=== PATIENT | female | born 1980 | race Two or more races ===

== ENCOUNTER 2023-08-19 20:28 | Inpatient (IN) | payer OTHER, MEDICAID, SELFPAY ==
[2023-08-19 20:29] VITALS: BP 162/91; PULSE 112; RESP 18; TEMP 36.6; O2SAT 99; BMI 24.5
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
[2023-08-19] MEDS: 0.9% Normal Saline (1000mL) 1,000 ML 999 ML IV (21:12)
[2023-08-19 21:25] LABS: Absolute Lymphocyte Count 3.73 X10^3/uL (0.83-4.51); Absolute Neutrophil Count 7.5 X10^3/uL (2.0-7.7); Basophil# 0.09 X10^3/uL; Basophil% 0.7 % (0-1); Eosinophil# 0.34 X10^3/uL; Eosinophils% 2.7 % (0-5); Hematocrit 44.1 % (37-47); Hemoglobin 14.6 g/dL (12.0-15.0); Lymphocyte # 3.73 X10^3/ul (0.83-4.51); Lymphocyte % 30.2 % (19-41); Mean Corp Hgb Conc 33.1 g/dL (32-36); Mean Corpuscular Hgb 31.9 pg (27.0-32.0); Mean Corpuscular Volume 96.3 fL (81-99); Mean Platelet Vol. 9.3 fl (6.2-12.0); Monocyte# 0.61 X10^3/uL; Monocyte% 4.9 % (0-10); NRBC Flagged by Analyzer 0 % (0-5); Neutrophil # 7.54 X10^3/uL (2.7-7.7); Platelet Count 310 K/mm3 (150-450); RBC Distribution Width CV 12.9 % (11.6-14.6); RBC Distribution Width SD 45.3 fl (35.1-43.9); Red Blood Count 4.58 M/mm3 (4.2-5.4); White Blood Count 12.4 K/mm3 (4.4-11.0)
[2023-08-19 21:33] LABS: International Normalized Ratio 0.9; Prothrombin Time (Protime)PT. 12.2 SECONDS (11.7-14.9)
[2023-08-19 21:38] LABS: Alcohol, Blood (Medical)-Serum < 3.0 mg/dL
[2023-08-19 21:43] LABS: ALB/GLOB Ratio 1.1 RATIO (0.9-2.4); AST(SGOT) 12 U/L (15-37); Alanine Aminotransfer ALT/SGPT 15 U/L (13-56); Albumin, Serum 3.6 g/dL (3.2-5.0); Alkaline Phosphatase 72 U/L (45-117); Anion Gap 5 (5-15); BUN 20 mg/dL (7-18); BUN/Creat Ratio 21.6 RATIO (10-20); Calcium,Total 9.2 mg/dL (8.5-10.1); Chloride 108 mmol/L (98-107); Creatinine, Serum 0.93 mg/dL (0.55-1.02); EST Glomerular Filtration Rate 70 mL/min (>60); Est Glom Filt Rate - Afr Amer 85 mL/min (>60); Estimated Creatinine Clearance 80.67 ml/min; Globulin 3.3 g/dL (2.2-4.2); Glucose 79 mg/dL (74-106); Potassium 3.8 mmol/L (3.5-5.1); Protein, Total 6.9 g/dL (6.4-8.2); Sodium Level 140 mmol/L (136-145)
[2023-08-19 22:06] LABS: Amphetamine Urine VISTA NEGATIVE (<1000 ng/mL); Barbiturate Urine VISTA NEGATIVE (< 200 ng/mL); Benzodiazepine Urine VISTA NEGATIVE (< 200 ng/mL); Cocaine Urine VISTA POSITIVE (< 300 ng/mL); Ecstacy Urine VISTA NEGATIVE (< 500 ng/mL); Methadone Urine VISTA NEGATIVE (< 300 ng/mL); PCP Urine VISTA NEGATIVE (< 25 ng/mL); THC Urine VISTA POSITIVE (< 50 ng/mL); Vista UDS pH Range 6
[2023-08-19 22:41] VITALS: BP 105/64; PULSE 91; RESP 16; O2SAT 99
[2023-08-19 22:57] VITALS: BP 105/64; PULSE 87; RESP 16; O2SAT 99
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
[2023-08-19 23:39] VITALS: BMI 25.4
[2023-08-20 00:05] VITALS: BP 107/74; PULSE 84; RESP 16; TEMP 36.6; O2SAT 95
[2023-08-20] MEDS: Phenobarbital 32.4 MG Tablet 64.8 MG PO ×7 (00:06→23:37)
[2023-08-20] MEDS: 0.9% Saline Lock 10 ML Syringe IV ×2 (00:11→09:22)
[2023-08-20] MEDS: 0.9% Normal Saline (1000mL) 1,000 ML 125 ML IV ×2 (00:11→06:47)
[2023-08-20 03:10] VITALS: BP 110/67; PULSE 73; RESP 16; TEMP 36.6; O2SAT 97
[2023-08-20 07:56] LABS: Absolute Lymphocyte Count 2.88 X10^3/uL (0.83-4.51); Absolute Neutrophil Count 6.2 X10^3/uL (2.0-7.7); Basophil# 0.07 X10^3/uL; Basophil% 0.7 % (0-1); Eosinophil# 0.39 X10^3/uL; Eosinophils% 3.8 % (0-5); Hematocrit 41.2 % (37-47); Hemoglobin 13.6 g/dL (12.0-15.0); Lymphocyte # 2.88 X10^3/ul (0.83-4.51); Lymphocyte % 28.3 % (19-41); Mean Corpuscular Hgb 32.4 pg (27.0-32.0); Mean Corpuscular Volume 98.1 fL (81-99); Mean Platelet Vol. 9.5 fl (6.2-12.0); Monocyte# 0.56 X10^3/uL; Monocyte% 5.5 % (0-10); NRBC Flagged by Analyzer 0 % (0-5); Neutrophil # 6.19 X10^3/uL (2.7-7.7); Platelet Count 262 K/mm3 (150-450); RBC Distribution Width SD 46.4 fl (35.1-43.9); White Blood Count 10.2 K/mm3 (4.4-11.0)
[2023-08-20 08:56] LABS: AST(SGOT) 8 U/L (15-37); Alanine Aminotransfer ALT/SGPT 13 U/L (13-56); Albumin, Serum 2.7 g/dL (3.2-5.0); Alkaline Phosphatase 57 U/L (45-117); Anion Gap 6 (5-15); BUN 19 mg/dL (7-18); BUN/Creat Ratio 25.3 RATIO (10-20); Calcium,Total 7.7 mg/dL (8.5-10.1); Chloride 114 mmol/L (98-107); Creatinine, Serum 0.75 mg/dL (0.55-1.02); EST Glomerular Filtration Rate 89 mL/min (>60); Est Glom Filt Rate - Afr Amer 108 mL/min (>60); Estimated Creatinine Clearance 96.56 ml/min; Globulin 2.7 g/dL (2.2-4.2); Glucose 138 mg/dL (74-106); Potassium 3.6 mmol/L (3.5-5.1); Protein, Total 5.4 g/dL (6.4-8.2); Sodium Level 142 mmol/L (136-145); Thyroid Stim Hormone (TSH) 1.97 uIU/mL (0.358-3.74)
[2023-08-20 09:16] VITALS: BP 108/66; PULSE 79; RESP 18; TEMP 36.8; O2SAT 95
[2023-08-20] MEDS: hydrOXYzine PAM 25 MG Capsule 50 MG PO (09:21)
[2023-08-20] MEDS: Gabapentin 300 MG Capsule PO (09:22)
[2023-08-20 11:51] VITALS: BP 128/72; PULSE 80
--- NOTE | 2023-08-20 14:09 | PN.HOSP_ITS ---
Reason for Visit Reason for Visit: Diagnoses Alcohol dependence, uncomplicated (08/19/23) Cocaine abuse, uncomplicated (08/19/23) Subjective Subjective Feeling tired today, had no other acute complaints at time of exam Objective Data Objective Data Vital Signs: Vital Signs Temp Pulse Resp BP Pulse Ox O2 Del Method 98.2 F 80 18 128/72 H 95 Room Air 08/20/23 09:16 08/20/23 11:51 08/20/23 09:16 08/20/23 11:51 08/20/23 09:16 08/20/23 09:16 Oxygen Delivery Method Room Air Weight: 75.9 kg Body Mass Index (BMI) 25.4 Intake & Output: Intake and Output for Last 24 Hours 08/18/23 08/19/23 08/20/23 23:59 23:59 23:59 Intake Total 1000 / 1000 1175 / 1175 Balance 1000 / 1000 1175 / 1175 Lab / Micro Data 08/20/23 07:30 08/20/23 07:30 Labs: Laboratory Results - last 24 hr 08/19/23 21:10: WBC 12.4 H, RBC 4.58, Hgb 14.6, Hct 44.1, MCV 96.3, MCH 31.9, MCHC 33.1, RDW Std Deviation 45.3 H, RDW Coeff of [place] 12.9, Plt Count 310, MPV 9.3, Immature Gran % (Auto) 0.500, Neut % (Auto) 61.0, Lymph % (Auto) 30.2, [place] % (Auto) 4.9, Eos % (Auto) 2.7, Baso % (Auto) 0.7, Absolute Neuts (auto) 7.5, Absolute Lymphs (auto) 3.73, Nucleated RBC % 0, PT 12.2, INR 0.9, Sodium 140, Potassium 3.8, Chloride 108 H, Carbon Dioxide 27.0, Anion Gap 5, BUN 20 H, Creatinine 0.93, Estim Creat Clear Calc 80.67, Est GFR (MDRD) Af Amer 85, Est GFR (MDRD) Non-Af 70, BUN/Creatinine Ratio 21.6 H, Glucose 79, Calcium 9.2, Total Bilirubin 0.10 L, AST 12 L, ALT 15, Alkaline Phosphatase 72, Total Protein 6.9, Albumin 3.6, Globulin 3.3, Albumin/Globulin Ratio 1.1, Urine Opiates Screen NEGATIVE, Urine Methadone Screen NEGATIVE, Ur Barbiturates Screen NEGATIVE, Ur Phencyclidine Scrn NEGATIVE, Ur Amphetamines Screen NEGATIVE, MDMA (Ecstasy) Screen NEGATIVE, U Benzodiazepines Scrn NEGATIVE, Urine Cocaine Screen POSITIVE H, U Cannabinoids Screen POSITIVE H, Ur Drug Screen Comment , Ethyl Alcohol < 3.0 08/20/23 07:30: WBC 10.2, RBC 4.20, Hgb 13.6, Hct 41.2, MCV 98.1, MCH 32.4 H, MCHC 33.0, RDW Std Deviation 46.4 H, RDW Coeff of [place] 13.0, Plt Count 262, MPV 9.5, Immature Gran % (Auto) 0.700, Neut % (Auto) 61.0, Lymph % (Auto) 28.3, [place] % (Auto) 5.5, Eos % (Auto) 3.8, Baso % (Auto) 0.7, Absolute Neuts (auto) 6.2, Absolute Lymphs (auto) 2.88, Nucleated RBC % 0, Sodium 142, Potassium 3.6, Chloride 114 H, Carbon Dioxide 22.0, Anion Gap 6, BUN 19 H, Creatinine 0.75, Estim Creat Clear Calc 96.56, Est GFR (MDRD) Af Amer 108, Est GFR (MDRD) Non-Af 89, BUN/Creatinine Ratio 25.3 H, Glucose 138 H, Calcium 7.7 L, Total Bilirubin 0.10 L, AST 8 L, ALT 13, Alkaline Phosphatase 57, Total Protein 5.4 L, Albumin 2.7 L, Globulin 2.7, Albumin/Globulin Ratio 1.0, TSH 1.97 Physical Exam Narrative General: Alert, oriented, no apparent distress HEENT: Atraumatic, normocephalic Eyes: extraocular movements grossly intact Neck: Supple Respiratory: normal respiratory effort Cardiovascular: no edema appreciated GI: nondistended Extremities: Moving all extremities Neuro: No overt focal neurological deficits Psych: Fairly cooperative Assessment & Plan Assessment/Plan (1) Cocaine abuse: (2) Alcohol dependence: PLAN: Plan 1. Chronic alcohol abuse with impending withdrawal-admit to general medical floor. Treat with phenobarbital taper. Alcohol cessation was strongly encouraged. Give oral multivitamin with thiamine and folate plus normal saline IV fluids. Finally, we will consult substance abuse counselor to see this patient in the a.m. to help her formulate and execute a plan for sobriety. -08/20: Patient on phenobarb taper though taking lower than was originally dosed but is tolerating this well, continue as needed medications 2. Chronic cocaine abuse confirmed on urine tox screen this admission complicating #1-cocaine abuse strongly discouraged. Give IM Vistaril as needed for agitation. -08/20: Hydroxyzine changed to p.o. 3. Two recent apparently accidental overdoses after patient used cocaine likely laced with fentanyl compounding #1 and #2 -illicit drug use was strongly discouraged. 4. Uncontrolled bipolar depression with anxiety and PTSD adding to the pathology of #1-#3 -continue home medications as previous. 5. Tobacco abuse-tobacco cessation was strongly encouraged with nicotine patch offered to control cravings. 6. DVT prophylaxis-Lovenox 40 mg subcu daily. Total time: Approximately 30 minutes. Charges/Coding Visit Charges Inpatient E&M: 07607 Subs Hosp L1
--- NOTE | 2023-08-20 14:53 | CHAPLAIN ---
Type of Pastoral Visit _x__ Initial Visit ___ Follow-up Visit ___ On-call Visit ___ General Patient Visit ___ Spiritual Assessment ___ Family Conference ___ Bereavement ___ Rapid Response ___ Code Blue ___ Other (describe below) Pastoral Care Referral From _x__ Patient ___ Family ___ Nurse ___ Physician ___ Specialty Molder ___ Visual Merchandising Assistant ___ Other (describe below) Sacrament/Intervention ___ Active listening ___ Anointing ___ Jewish ___ Bereavement ___ Communion ___ Mee exploration ___ ___ Life review ___ Prayer ___ Reconciliation ___ Sacrament of Sick _x__ Supportive presence ___ Wedding ___ Other (describe below) Pastoral Comments offer of support given to patient who acknowledged the offer but could not keep her eyes open; pt stated that she was very tired; offer of another time for visit was accepted
[2023-08-20 16:39] VITALS: BP 123/75; PULSE 80; RESP 16; TEMP 36.5; O2SAT 96
[2023-08-20 19:38] VITALS: BP 116/69; PULSE 83; RESP 16; TEMP 36.9; O2SAT 97
[2023-08-21 03:00] VITALS: BP 94/48; PULSE 78; RESP 18; TEMP 36.6; O2SAT 100
[2023-08-21] MEDS: Phenobarbital 32.4 MG Tablet 64.8 MG PO ×3 (03:38→12:47)
[2023-08-21 08:39] VITALS: BP 133/44; PULSE 77; RESP 16; TEMP 36.7; O2SAT 99
[2023-08-21] MEDS: Gabapentin 300 MG Capsule PO (08:45)
[2023-08-21] MEDS: hydrOXYzine PAM 25 MG Capsule 50 MG PO (08:45)
[2023-08-21 12:45] VITALS: BP 124/78; PULSE 88; RESP 16; TEMP 36.6; O2SAT 96
--- NOTE | 2023-08-21 15:40 | PN.HOSP_ITS ---
Hospitalist Note PATIENT LEFT AMA
--- NOTE | 2023-08-21 15:40 | PCM.HOSP.N ---
Hospitalist Note PATIENT LEFT AMA
== END 2023-08-21 15:25 | disposition left against medical advice (07) | DRG 894 ==
LOC: ED 21:40 → MS3 23:27
PROVIDERS: Admitting Provider Internal Medicine; Emergency Provider Emergency Medicine; Visit Provider Internal Medicine
DX: F10.139 Alcohol abuse with withdrawal, unspecified (principal); F14.10 Cocaine abuse, uncomplicated; F31.9 Bipolar disorder, unspecified; F17.210 Nicotine dependence, cigarettes, uncomplicated; F41.9 Anxiety disorder, unspecified; F43.10 Post-traumatic stress disorder, unspecified; Y90.0 Blood alcohol level of less than 20 mg/100 ml
CPT/HCPCS: 36415; 80053; 80307; 82077; 84443; 85025; 85610; 99284; J7030; A4216

== ENCOUNTER 2023-09-09 08:05 | Inpatient (IN) | payer OTHER, MEDICAID, SELFPAY ==
[2023-09-09 08:06] VITALS: BP 149/89; PULSE 96; RESP 15; TEMP 36.2; O2SAT 98; BMI 23.6
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
[2023-09-09 09:29] LABS: Amphetamine Urine VISTA POSITIVE (<1000 ng/mL); Barbiturate Urine VISTA POSITIVE (< 200 ng/mL); Benzodiazepine Urine VISTA NEGATIVE (< 200 ng/mL); Cocaine Urine VISTA POSITIVE (< 300 ng/mL); Ecstacy Urine VISTA NEGATIVE (< 500 ng/mL); Methadone Urine VISTA NEGATIVE (< 300 ng/mL); PCP Urine VISTA NEGATIVE (< 25 ng/mL); THC Urine VISTA POSITIVE (< 50 ng/mL); Vista UDS pH Range 6
[2023-09-09 09:29] LABS: Absolute Lymphocyte Count 2.03 X10^3/uL (0.83-4.51); Absolute Neutrophil Count 6.2 X10^3/uL (2.0-7.7); Basophil% 1.1 % (0-1); Eosinophil# 0.13 X10^3/uL; Eosinophils% 1.4 % (0-5); Hematocrit 45.2 % (37-47); Hemoglobin 15.2 g/dL (12.0-15.0); Lymphocyte # 2.03 X10^3/ul (0.83-4.51); Mean Corp Hgb Conc 33.6 g/dL (32-36); Mean Corpuscular Hgb 32.3 pg (27.0-32.0); Mean Platelet Vol. 9.4 fl (6.2-12.0); Monocyte# 0.71 X10^3/uL; Monocyte% 7.7 % (0-10); NRBC Flagged by Analyzer 0 % (0-5); Neutrophil % 67.4 % (47-70); Platelet Count 347 K/mm3 (150-450); RBC Distribution Width CV 12.7 % (11.6-14.6); RBC Distribution Width SD 45.5 fl (35.1-43.9); Red Blood Count 4.71 M/mm3 (4.2-5.4); White Blood Count 9.2 K/mm3 (4.4-11.0)
[2023-09-09 09:44] LABS: Internal QC Validated? YES +Cl - CLEAR BKGD; Pregnancy, Serum, hCG Quali. NEGATIVE Negative
[2023-09-09 09:48] LABS: Alcohol, Blood (Medical)-Serum < 3.0 mg/dL
[2023-09-09 09:53] LABS: ALB/GLOB Ratio 1.1 RATIO (0.9-2.4); AST(SGOT) 11 U/L (15-37); Alanine Aminotransfer ALT/SGPT 20 U/L (13-56); Alkaline Phosphatase 87 U/L (45-117); Anion Gap 2 (5-15); BUN 15 mg/dL (7-18); BUN/Creat Ratio 19.8 RATIO (10-20); Chloride 107 mmol/L (98-107); Creatinine, Serum 0.76 mg/dL (0.55-1.02); EST Glomerular Filtration Rate 88 mL/min (>60); Est Glom Filt Rate - Afr Amer 106 mL/min (>60); Estimated Creatinine Clearance 98.72 ml/min; Globulin 3.5 g/dL (2.2-4.2); Glucose 92 mg/dL (74-106); Potassium 3.9 mmol/L (3.5-5.1); Protein, Total 7.5 g/dL (6.4-8.2); Sodium Level 135 mmol/L (136-145)
--- NOTE | 2023-09-09 10:52 | ED.RN ---
Pt. confirms she drinks 24oz of 8% malt liquer a day. Pt. has 1 glass of wine at 0530 this morning.
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
[2023-09-09 11:52] VITALS: BP 102/66; PULSE 68; RESP 18; TEMP 36.5; O2SAT 99
[2023-09-09 12:06] VITALS: BMI 23.8
[2023-09-09 16:00] VITALS: BP 112/67; PULSE 69; RESP 18; TEMP 36.6; O2SAT 100
[2023-09-09 20:00] VITALS: BP 96/53; PULSE 66; RESP 15; TEMP 37; O2SAT 93
[2023-09-09 20:55] VITALS: BP 96/53; PULSE 66; RESP 15; TEMP 37; O2SAT 93
[2023-09-10 03:10] VITALS: BP 98/74; PULSE 79; RESP 15; TEMP 36.8; O2SAT 97
[2023-09-10 08:02] VITALS: BP 107/69; PULSE 92; RESP 18; TEMP 36.6; O2SAT 98
[2023-09-10] MEDS: Thiamine Hydrochloride 100 MG Tablet PO (08:04)
[2023-09-10] MEDS: Folic Acid 1 MG Tablet PO (08:04)
--- NOTE | 2023-09-10 10:08 | DCINST_ITS ---
Discharge Instructions Diet Discharge Diet: No restrictions Activity Discharge Activity: Return to Normal Activity Follow Up Care Test Results: Test results from this visit will be discussed in further detail at your follow- up appointment, if applicable. Discharge Plan Admission Admit Date/Time: 09/09/23 11:11 Primary Reason for Your Visit: ETOH use Attending Provider: Sheyla Sparks Primary Care Provider: Care Physician,No Primary Discharge Orders/Prescriptions Prescriptions: No Action NK Referrals / Follow Up: Care Physician,No Primary [Primary Care Provider] - ( -If you do not have a primary care physician of list of local primary care physicians can be provided for you upon discharge. Please ask for this list prior to discharge ) Disposition Disposition (needs filled in before D/C Order can be placed): Home, Self Care
--- NOTE | 2023-09-10 10:10 | DS.PCM_ITS ---
Providers Date of Admission: 09/09/23 Date of Discharge: 09/10/23 Primary Care Physician: No Primary Care Phys Reason For Visit: ETOH DETOX Diagnosis Discharge Diagnosis (1) Alcohol use: Status: Acute Code(s): Z78.9 - Other specified health status (2) Cocaine use: Status: Acute Code(s): F14.90 - Cocaine use, unspecified, uncomplicated Plan #Alcohol use disorder #cocaine abuse #Tobacco use d/o Medications at Discharge Home Medications NK 08/19/23 Hospital Course Summary of Care Provided Hospital Course: Per HPI: 43 F with history of alcohol abuse, cocaine use, tobacco use and chronic depression who presented to [facility] 09/09/2023 due to alcohol being found on her screening when she presented to [facility]. She had gone yesterday and was instructed to come to the ER (she reported having 2 shots of tequila the night prior to presenting to [facility]) however in the ER she got attitude and left the only to Re-presented today for admission with her goal to go back to [facility]. Patient used to drink 4-5 bottles of wine a day however recently she cut back to 2 twisted teas about 3 times a week and just increased her cocaine use instead of drinking. Of note she was here for detox earlier this month and left AMA, reportedly because she does not like the phenobarbital. ED physician contacted [facility] regarding feeling that she would not be withdrawing from alcohol and likely did not need admission however it was recommended she be admitted and if stable tomorrow may be able to DC. Patient seen at bedside. She reports drinking 3 times a week as above and drinking roughly 2 twisted teas, she denies any physical symptoms or withdrawal symptoms and does not think that she will go through withdrawal but is motivated to go back to [facility] which is why she was agreeable to admission. Discussed plan to not schedule her on any medications but to monitor with [facility] and patient was agreeable. Of note patient did have recent stressor where she was at home 2 weeks ago and woke up and found her best friend next year when she woke up from a cocaine overdose. She has had increased stress associated with this INTERVAL HISTORY: Patient had no withdrawal symptoms and was doing well, discharged to inpatient rehab Weight / BMI Weight Weight: 73 kg Body Mass Index (BMI) 23.8 ABG / Lab / Microbiology Data 09/09/23 09:20 09/09/23 09:20 D/C Instructions Discharge Diet: No restrictions Meaningful Use Info Meaningful Use Diagnoses (Choose all that apply): None applicable Discharge Plan Admission Admit Date/Time: 09/09/23 11:11 Primary Reason for Your Visit: ETOH use Attending Provider: Sheyla Sparks Primary Care Provider: Care Physician,No Primary Discharge Orders/Prescriptions Prescriptions: No Action NK Referrals / Follow Up: Care Physician,No Primary [Primary Care Provider] - ( -If you do not have a primary care physician of list of local primary care physicians can be provided for you upon discharge. Please ask for this list prior to discharge ) Disposition Disposition (needs filled in before D/C Order can be placed): Home, Self Care
--- NOTE | 2023-09-10 10:47 | ADDICTION ---
Met w/ pt to complete all addiction assessments. Pt came from [facility] after testing positive for alcohol. She plans to return to [facility] for residential treatment. [facility] will provide transportation.
== END 2023-09-10 10:37 | disposition home or self-care (01) | DRG 897 ==
LOC: ED 10:01 → PCU 11:35
PROVIDERS: Admitting Provider Internal Medicine; Emergency Provider Emergency Medicine; Visit Provider Internal Medicine
DX: F10.20 Alcohol dependence, uncomplicated (principal); F14.10 Cocaine abuse, uncomplicated; F17.210 Nicotine dependence, cigarettes, uncomplicated; Y90.9 Presence of alcohol in blood, level not specified
CPT/HCPCS: 80053; 80307; 82077; 84703; 85025; 99283; A4216

== ENCOUNTER 2024-01-01 | Inpatient (IN) | payer MEDICAID, SELFPAY ==
[2024-01-01] VITALS (11 sets, daily range): BP systolic 104–138; BP diastolic 60–91; PULSE 65–95; RESP 16–18; TEMP 36.4–36.8; O2SAT 95–100; BMI 24.3
--- NOTE | 2024-01-01 00:11 | EKG12_ITS ---
Test Reason : DYSRHYTHMIA Blood Pressure : / mmHG Vent. Rate : 082 BPM Atrial Rate : 082 BPM P-R Int : 152 ms QRS Dur : 086 ms QT Int : 416 ms P-R-T Axes : 027 066 041 degrees QTc Int : 486 ms Normal sinus rhythm Borderline Prolonged QT Abnormal ECG Confirmed by Vitor Montilla ([id number]), social media editor JOHN DAILY ([id number]) on 01/01/2024 10:51:21 AM Referred By: Confirmed By:Vitor Montilla
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
[2024-01-01 00:55] LABS: Amphetamine Urine VISTA NEGATIVE (<1000 ng/mL); Barbiturate Urine VISTA NEGATIVE (< 200 ng/mL); Benzodiazepine Urine VISTA NEGATIVE (< 200 ng/mL); Cocaine Urine VISTA POSITIVE (< 300 ng/mL); Ecstacy Urine VISTA NEGATIVE (< 500 ng/mL); Methadone Urine VISTA NEGATIVE (< 300 ng/mL); PCP Urine VISTA NEGATIVE (< 25 ng/mL); THC Urine VISTA POSITIVE (< 50 ng/mL); Vista UDS pH Range 7
[2024-01-01 01:15] LABS: Absolute Lymphocyte Count 2.41 X10^3/uL (0.83-4.51); Absolute Neutrophil Count 6.4 X10^3/uL (2.0-7.7); Basophil# 0.08 X10^3/uL; Basophil% 0.8 % (0-1); Eosinophil# 0.13 X10^3/uL; Eosinophils% 1.4 % (0-5); Hematocrit 39.7 % (37-47); Hemoglobin 13.3 g/dL (12.0-15.0); Lymphocyte # 2.41 X10^3/ul (0.83-4.51); Lymphocyte % 25.1 % (19-41); Mean Corp Hgb Conc 33.5 g/dL (32-36); Mean Corpuscular Hgb 32.1 pg (27.0-32.0); Mean Corpuscular Volume 95.9 fL (81-99); Mean Platelet Vol. 9.3 fl (6.2-12.0); Monocyte# 0.52 X10^3/uL; Monocyte% 5.4 % (0-10); NRBC Flagged by Analyzer 0 % (0-5); Neutrophil % 66.8 % (47-70); Platelet Count 273 K/mm3 (150-450); Red Blood Count 4.14 M/mm3 (4.2-5.4); White Blood Count 9.6 K/mm3 (4.4-11.0)
[2024-01-01 01:26] LABS: Internal QC Validated? YES +Cl - CLEAR BKGD; Pregnancy, Serum, hCG Quali. NEGATIVE Negative; Record Kit Lot#, Serum Preg. 718086
[2024-01-01 01:34] LABS: ALB/GLOB Ratio 1.1 RATIO (0.9-2.4); AST(SGOT) 21 U/L (15-37); Alanine Aminotransfer ALT/SGPT 21 U/L (13-56); Albumin, Serum 3.5 g/dL (3.2-5.0); Alkaline Phosphatase 69 U/L (45-117); Anion Gap 9 (5-15); BUN 13 mg/dL (7-18); BUN/Creat Ratio 15.9 RATIO (10-20); CPK Total, Creatine Kinase 125 U/L (26-192); Calcium,Total 8.6 mg/dL (8.5-10.1); Chloride 109 mmol/L (98-107); Creatinine, Serum 0.82 mg/dL (0.55-1.02); EST Glomerular Filtration Rate 80 mL/min (>60); Est Glom Filt Rate - Afr Amer 97 mL/min (>60); Globulin 3.1 g/dL (2.2-4.2); Glucose 98 mg/dL (74-106); Magnesium 2.3 mg/dL (1.6-2.6); Potassium 3.3 mmol/L (3.5-5.1); Protein, Total 6.6 g/dL (6.4-8.2); Sodium Level 142 mmol/L (136-145)
[2024-01-01] MEDS: Lactated Ringers 1,000 ML 125 ML IV (01:55)
[2024-01-01 02:06] LABS: HIV - WCH Non-Reactive (Nonreactive); Syphilis Antibodies Non-reactive
[2024-01-01] MEDS: Phenobarbital 32.4 MG Tablet 64.8 MG PO ×4 (02:07→20:44)
[2024-01-01] MEDS: Ibuprofen 600 MG Tablet PO (06:52)
[2024-01-01] MEDS: Ondansetron 8 MG Tablet PO (06:59)
[2024-01-01] MEDS: Thiamine Hydrochloride 100 MG Tablet PO (08:40)
[2024-01-01] MEDS: Folic Acid 1 MG Tablet PO (08:40)
[2024-01-01] MEDS: Potassium Chloride Oral Tablet 20 MEQ 40 MEQ PO (08:40)
[2024-01-01 09:32] LABS: Hepatitis B Surface Antibody Non-Reactive; Hepatitis B Surface Antigen Non-Reactive (Nonreactive); Hepatitis C Antibody Non-Reactive (Nonreactive)
[2024-01-01] MEDS: hydrOXYzine PAM 25 MG Capsule 50 MG PO (14:03)
--- NOTE | 2024-01-01 17:43 | PN.HOSP_ITS ---
Hospitalist Note Patient was seen and examined today, he does not complain of any nervousness or tremor at this time. The plan is to continue his present medications and have addiction social work specialist talk with him about follow-up detox programs, he stated to me that he would like to do an inpatient detox program.
[2024-01-02 02:52] VITALS: BP 110/62; PULSE 62; RESP 16; TEMP 36.7; O2SAT 98
[2024-01-02] MEDS: Phenobarbital 32.4 MG Tablet 64.8 MG PO ×2 (02:56→08:27)
[2024-01-02] MEDS: Gabapentin 300 MG Capsule PO (08:27)
[2024-01-02] MEDS: Multivitamins,Ther W-Minerals Tablet 1 TABLET PO (08:27)
[2024-01-02] MEDS: Thiamine Hydrochloride 100 MG Tablet PO (08:28)
[2024-01-02] MEDS: Folic Acid 1 MG Tablet PO (08:28)
[2024-01-02 08:36] VITALS: BP 112/73; PULSE 72; RESP 16; TEMP 36.3; O2SAT 98
--- NOTE | 2024-01-02 11:58 | NURSING ---
aware per secretary to the vice president she was dispencing [facility] meal menus and pt states she would like to leave, Primary RN and RAMP navigator was notified. HRO Og happened to be rounding on unit. informed by RAMP navigator Moses pt became very agitated and slamming doors- HRO to room with primary RN. aware pt signed AMA paper and was escorted off unit by HRO. Primary RN asked this nurse to room, strong smoke/tobacco odor in room. noted items like rankin dictionary, a roll of dental floss, a rick, and some tiny metal mimi left on the bed, and items in bedside table. EVS called and requested to come to the room, had them unlock toilet roll displenser. asked EVS not to clean room until could see room with manager printing and HRO. Into room with HRO, noted rolled socks in bedside table noted hard dark item inside sock. HRO called back to room with manager printing.
--- NOTE | 2024-01-02 12:36 | NURSING ---
Stripper Preliminary went into room at approximately 1145am and pt told her she wanted to leave. Pt upset b/c she feels all she does it sleep here. I'm glad I got money I need a drink. PT was also yelling and slamming doors according to Marco Antonio Warren detox coordinator. Pt was escorted out by Officer Og.
--- NOTE | 2024-01-02 17:51 | DS.PCM_ITS ---
Providers Date of Admission: 01/01/24 Date of Discharge: 01/02/24 Primary Care Physician: [place] Primary Care Phys Reason For Visit: ETOH DETOX Diagnosis Discharge Diagnosis (1) Admitted to alcohol detoxification center: Status: Acute Plan 1. Acute alcohol withdrawal #2 acute alcoholism #3 cocaine abuse Medications at Discharge Home Medications NK 08/19/23 Hospital Course Operations None Procedures None Summary of Care Provided Minutes Spent on Discharge: 30 Hospital Course: This 43-year-old white female was seen in the emergency room at [facility] requesting services for alcohol detox. Patient's labs were unremarkable, she was admitted to [place] [address] using the alcohol detox order set, during her hospitalization she had no evidence of DTs. On 01/02/2024, patient was seen and examined: On examination she appeared in good health and spirits, she does not appear to be in any distress. Vital signs as documented. Skin warm and dry and without overt rashes. Neck without JVD, thyroid appears normal, trachea is midline, neck is supple. Lungs clear, normal air movement was noted. Heart exam notable for regular rhythm, normal sounds and absence of murmurs, rubs or gallops. Abdomen unremarkable and without evidence of organomegaly, masses, or abdominal aortic enlargement, bowel sounds are present in all 4 quadrants, no abdominal tenderness was noted. Extremities nonedematous, no cyanosis was noted, no clubbing was noted. Neuro: Cranial nerves II through XII are grossly intact, no focal motor deficits were noted, sensation to light touch and pinprick is intact, motor exam 5/5 throughout. Psych: Patient is alert and oriented x3, she does not appear anxious or depressed, she does not appear agitated. On 01/02/2024, patient abruptly asked to be discharged AGAINST MEDICAL ADVICE, she was escorted from the hospital. Weight / BMI Weight Weight: 74.8 kg Body Mass Index (BMI) 24.3 ABG / Lab / Microbiology Data 01/01/24 01:04 01/01/24 00:58 Meaningful Use Info Meaningful Use Diagnoses (Choose all that apply): None applicable Discharge Plan Admission Admit Date/Time: 01/01/24 00:38 Attending Provider: Senthil Bullock Primary Care Provider: Care Physician,No Primary Consulting Providers: Tammy Morton Discharge Orders/Prescriptions Prescriptions: No Action NK Referrals / Follow Up: Care Physician,No Primary [Primary Care Provider] - Disposition Disposition (needs filled in before D/C Order can be placed): Against Medical Advice Charges/Coding Visit Charges Inpatient E&M: 11318 Disch Hosp
== END 2024-01-02 11:58 | disposition left against medical advice (07) | DRG 894 ==
LOC: ED 00:46 → MS3 03:52
PROVIDERS: Admitting Provider Family Medicine; Emergency Provider Emergency Medicine; Visit Provider Internal Medicine
DX: F10.139 Alcohol abuse with withdrawal, unspecified (principal); F12.10 Cannabis abuse, uncomplicated; F31.9 Bipolar disorder, unspecified; F14.10 Cocaine abuse, uncomplicated; F17.210 Nicotine dependence, cigarettes, uncomplicated; F43.10 Post-traumatic stress disorder, unspecified; Z90.710 Acquired absence of both cervix and uterus; Z98.51 Tubal ligation status; Y90.9 Presence of alcohol in blood, level not specified
CPT/HCPCS: 80053; 80307; 80320; 82550; 83735; 84100; 84703; 85025; 86703; 86706; 86780; 86803; 87340; 93005; 99284; J7120; A4216; G0480